=== PATIENT | female | born 1935 | race Caucasian/White ===

== ENCOUNTER 2016-07-04 06:33 | Day surgery (SDC) | payer MEDICARE ==
[2016-07-04] MEDS ORDERED: IV START KIT ONE (06:34)
[2016-07-04] MEDS ORDERED: LACTATED RINGERS 1,000 ML ONE (06:34)
[2016-07-04] MEDS ORDERED: LIDOCAINE Viscous 2% 15 ML UDCUP ONE (07:35)
[2016-07-04] MEDS ORDERED: PROPOFOL 20 ML IV ONE (07:39)
[2016-07-04] MEDS ORDERED: LACTATED RINGERS 1,000 ML IV SCH (08:00)
[2016-07-04 12:09] LABS: HELICOBACTER PYLORII DETECTION NEGATIVE (NEGATIVE)
== END 2016-07-04 08:25 | disposition home or self-care (01) ==
LOC: SDC 06:33
PROVIDERS: ATTEND Surgery
PROC: 0DB68ZX Excision of Stomach, Via Natural or Artificial Opening Endoscopic, Diagnostic (ICD-10-PCS; principal; 2016-07-04)
DX: Z09 Encounter for follow-up examination after completed treatment for conditions other than malignant neoplasm (principal); Z87.11 Personal history of peptic ulcer disease; K44.9 Diaphragmatic hernia without obstruction or gangrene; I10 Essential (primary) hypertension; E78.00 Pure hypercholesterolemia, unspecified
CPT/HCPCS: 87081; 43239; A9270; J7120